=== PATIENT | female | born 1980 | race Caucasian/White ===

== ENCOUNTER 2023-09-16 10:53 | Emergency (ER) | payer OTHER ==
[2023-09-16 11:03] VITALS: BMI 27.4
[2023-09-16 12:40] LABS: BASO % 0.6 % (0-2.0); EOS % 1.4 % (0-4.5); HEMATOCRIT 37.2 % (32.4-45.2); HEMOGLOBIN 12.4 GM/dL (10.7-15.3); LYMPH % 41.3 % (8-40); MCH 30.3 pg (25.7-33.7); MCHC 33.4 g/dl (32.0-36.0); MEAN CELL VOLUME 90.6 fl (80-96); MEAN PLT VOLUME 8.4 fl (7.5-11.1); MONO % 10.8 % (3.8-10.2); NEUT % 45.9 % (42.8-82.8); PLATELET COUNT 261 10^3/uL (134-434); RDW 12.8 % (11.6-15.6); WHITE BLOOD COUNT 5.8 K/mm3 (4.0-10.0)
[2023-09-16 12:46] LABS: URINE APPEARANCE TURBID; URINE BILIRUBIN 1+ (NEGATIVE); URINE COLOR ORANGE; URINE GLUCOSE (UA) NEGATIVE (NEGATIVE); URINE KETONE NEGATIVE (NEGATIVE); URINE LEUK ESTERASE TRACE (NEGATIVE); URINE NITRITE NEGATIVE (NEGATIVE); URINE PROTEIN 3+ (NEGATIVE)
[2023-09-16 12:47] LABS: HCG,QUALITATIVE URINE Negative
[2023-09-16 12:57] LABS: EPI CELLS 12 /uL (0-25.1); HYALINE CASTS 2 /uL (0-3.1); URINE BACTERIA 141 /uL (0-1359); URINE RBC 8821 /uL (0-23.9); URINE WBC 26 /uL (0-25.8)
[2023-09-16 13:03] LABS: CALCIUM 9.1 mg/dL (8.5-10.1)
[2023-09-16 13:04] LABS: BLOOD UREA NITROGEN 9.9 mg/dL (7-18)
[2023-09-16 13:07] LABS: CREATININE 0.6 mg/dL (0.55-1.3)
[2023-09-16 13:33] VITALS: BP 122/72; PULSE 78; RESP 19; TEMP 97.9
== END 2023-09-16 13:33 | disposition home or self-care (01) ==
LOC: JER 10:53
DX: N93.9 Abnormal uterine and vaginal bleeding, unspecified (principal)
CPT/HCPCS: 36415; 80048; 81003; 84702; 84703; 85025; 86850; 86900; 86901; 87086; 99283-25